=== PATIENT | male | born 1945 | race Caucasian/White ===

== ENCOUNTER 2024-02-05 14:34 | Inpatient (IN) | payer MEDICARE, SELFPAY ==
[2024-02-04] VITALS (7 sets, daily range): BP systolic 106–142; BP diastolic 44–88; BMI 24.0; BMI 23.1
--- NOTE | 2024-02-04 17:17 | ED.CVA ---
History of Present Illness
<Tino Barber PA-C - Last Filed: 02/04/24 19:20>
General
Chief Complaint: CVA/TIA Symptoms
Time Seen by Provider: 02/04/24 17:15
Onset of Stroke Symptoms
Onset of symptoms known: No
Time pt last seen normal is known: No
Travel History
Have you had any contact with someone who has COVID-19?: No
Do you have any symptoms of coronavirus? Fever > 100 degrees, chills, cough, shortness of breath, sore throat, loss of taste or smell, muscle aches, or headache?: No
History of Present Illness
History of Present Illness:
78-year-old male presents to the emergency department for evaluation of waxing and waning mental status changes over the past several days. According to his daughter he had an abrupt change in mental status at 12:30 PM today Where he became
agitated cannot form a sentence fully. Patient states he has felt 'off and confused' intermittently for the past several days. After the initial event the patient's daughter took him home where he took a nap, upon awakening he had a repeat of
similar symptoms thus prompting emergency department evaluation. Stroke alert called in triage, On my evaluation NIH is 0
Past History
<Tino Barber PA-C - Last Filed: 02/04/24 19:20>
Past History
ED Past Medical History: None
ED Past Surgical History: None
Review of Systems
<Tino Barber PA-C - Last Filed: 02/04/24 19:20>
Review of Systems
Allergies reviewed?: Yes
All Other Systems: ROS reviewed and negative except as documented in HPI and ROS
Phy Exam
<Tino Barber PA-C - Last Filed: 02/04/24 19:20>
Physical Exam
Physical Exam:
GEN: Well appearing, NAD, WDWN
HEENT: Oral mucosa moist, no scleral icterus, no nasal congestion
Cardiac: Regular rate
Lung: No respiratory distress, no tachypnea
MSK: No gross deformity or injuries
Skin: Good color, no pallor or jaundice, no rashes
Neuro: AO x3; CN II-XII grossly intact. BUE strength 5/5 in all guy, sensation intact and symmetric. BLE strength 5/5 in all guy, sensation intact and symmetric, Normal eyvyaf-ku-bfje and jooj-yl-kkth
Psych: Calm, cooperative
Course
<Tino Barber PA-C - Last Filed: 02/04/24 19:20>
Orders/Labs/Results
Orders:
Orders
02/04/24 17:07
EKG [Electrocardiogram (*1)] Urgent
Reason for Study: TIA/Stroke
02/04/24 17:13
Electrocardiogram (*1) Urgent
Reason for Study: Other
Other Reason for Exam: Possible Stroke
Bedside Glucose- Treatment ONCE
Cardiac Monitoring- Treatment ONCE
EKG- Treatment ONCE
IV Insert/Care/Rem.- Treatment PRN
Vital Signs As Directed
Frequency: Other
Weight As Directed
Frequency: Once
Comment: ZERO STRETCHER SCALE FOR ACCURATE WEIGHT
02/04/24 17:15
CT Head W/o Cont STROKE ALERT Urgent
Reason For Exam: visual changes
02/04/24 17:17
Complete Blood Count/With Diff Urgent
Comprehensive Metabolic Panel Urgent
PTT Urgent
Prothrombin Time Urgent
Troponin I Urgent
02/04/24 18:07
Lorazepam [Ativan] 1 mg IV NOW STA
02/04/24 18:10
Aspirin 325 mg PO NOW STA
Clopidogrel Bisulfate [Plavix] 75 mg PO NOW STA
02/04/24 18:32
Admit/Transfer Patient As Directed
Co-Sign Provider:
Level of Care: Observation services
Assign to:: Telemetry
Physician / Group: Jessica nicolasists
Diagnosis: TIA/CVA
Reason for Telemetry: CVA/TIA
Date to Stop Telemetry: 02/07/24
Time to Stop Telemetry: 11:00
Code Status As Directed
Resuscitation Status: Full Code
02/04/24 18:43
Ipratropium/Albuterol Sulfate [Duoneb] 3 ml INH R Q4HPRN PRN
02/07/24 11:00
DC Protocol for Telemetry ONCE
Abnormal Lab Results
02/04/24 02/04/24
17:17 17:19
WBC 12.2 H 10^3/uL
(4.8-10.8)
MCV 94.1 H fL
(80.0-94.0)
MCH 31.4 H pg
(27.0-31.0)
Absolute Neuts (auto) 8.0 H 10^3/uL
(1.4-6.5)
Absolute Monos (auto) 0.8 H 10^3/uL
(0.1-0.6)
APTT 35.3 H Sec
(23.4-35.0)
BUN 24 H mg/dl
(9-20)
Glucose 246 H mg/dl
(70-99)
Calcium 10.6 H mg/dl
(8.4-10.2)
POC Glucose 244 H mg/dl
(70-99)
02/04/24 17:17
02/04/24 17:17
Vital Signs
Initial and Last Documented VS:
Initial Vital Signs
Temp Pulse Resp BP Pulse Ox
98.2 F 96 18 142/65 97
02/04/24 17:00 02/04/24 17:00 02/04/24 17:00 02/04/24 17:00 02/04/24 17:00
Last Documented Vital Signs
Temp Pulse Resp BP Pulse Ox
98.2 F 98 20 122/44 97
02/04/24 17:00 02/04/24 18:30 02/04/24 17:16 02/04/24 18:20 02/04/24 18:20
<Christopher Voss MD - Last Filed: 02/04/24 18:54>
Orders/Labs/Results
Orders:
Orders
02/04/24 17:07
EKG [Electrocardiogram (*1)] Urgent
Reason for Study: TIA/Stroke
02/04/24 17:13
Electrocardiogram (*1) Urgent
Reason for Study: Other
Other Reason for Exam: Possible Stroke
Bedside Glucose- Treatment ONCE
Cardiac Monitoring- Treatment ONCE
EKG- Treatment ONCE
IV Insert/Care/Rem.- Treatment PRN
Vital Signs As Directed
Frequency: Other
Weight As Directed
Frequency: Once
Comment: ZERO STRETCHER SCALE FOR ACCURATE WEIGHT
02/04/24 17:15
CT Head W/o Cont STROKE ALERT Urgent
Reason For Exam: visual changes
02/04/24 17:17
Complete Blood Count/With Diff Urgent
Comprehensive Metabolic Panel Urgent
PTT Urgent
Prothrombin Time Urgent
Troponin I Urgent
02/04/24 18:07
Lorazepam [Ativan] 1 mg IV NOW STA
02/04/24 18:10
Aspirin 325 mg PO NOW STA
Clopidogrel Bisulfate [Plavix] 75 mg PO NOW STA
02/04/24 18:32
Admit/Transfer Patient As Directed
Co-Sign Provider:
Level of Care: Observation services
Assign to:: Telemetry
Physician / Group: Jessica nicolasists
Diagnosis: TIA/CVA
Reason for Telemetry: CVA/TIA
Date to Stop Telemetry: 02/07/24
Time to Stop Telemetry: 11:00
Code Status As Directed
Resuscitation Status: Full Code
02/04/24 18:43
Ipratropium/Albuterol Sulfate [Duoneb] 3 ml INH R Q4HPRN PRN
02/07/24 11:00
DC Protocol for Telemetry ONCE
Abnormal Lab Results
02/04/24 02/04/24
17:17 17:19
WBC 12.2 H 10^3/uL
(4.8-10.8)
MCV 94.1 H fL
(80.0-94.0)
MCH 31.4 H pg
(27.0-31.0)
Absolute Neuts (auto) 8.0 H 10^3/uL
(1.4-6.5)
Absolute Monos (auto) 0.8 H 10^3/uL
(0.1-0.6)
APTT 35.3 H Sec
(23.4-35.0)
BUN 24 H mg/dl
(9-20)
Glucose 246 H mg/dl
(70-99)
Calcium 10.6 H mg/dl
(8.4-10.2)
POC Glucose 244 H mg/dl
(70-99)
02/04/24 17:17
02/04/24 17:17
Vital Signs
Initial and Last Documented VS:
Initial Vital Signs
Temp Pulse Resp BP Pulse Ox
98.2 F 96 18 142/65 97
02/04/24 17:00 02/04/24 17:00 02/04/24 17:00 02/04/24 17:00 02/04/24 17:00
Last Documented Vital Signs
Temp Pulse Resp BP Pulse Ox
98.2 F 98 20 122/44 97
02/04/24 17:00 02/04/24 18:30 02/04/24 17:16 02/04/24 18:20 02/04/24 18:20
<Tino Barber PA-C - Last Filed: 02/04/24 19:20>
MDM/Problems Addressed
MDM/Problems Addressed:
I suspect the patient's symptoms are predominantly psychosomatic given the rapidity with which he develops his 'episodes' and the need to ambulate about the room. Nevertheless given his advanced age and vascular risk factors of insulin-dependent
diabetes would feel it is appropriate to admit this patient for further TIA workup
<Tino Barber PA-C - Last Filed: 02/04/24 19:20>
*Critical Care Note
Total Time (30-74mins, 75-104mins- exclusive of procedures): Not Applicable
<Tino Barber PA-C - Last Filed: 02/04/24 19:20>
Update Note
Update Note:
1803: Patient with a recurrent event, states he feels anxious and needs to get himself up and out of bed, repeat neuro exam is unremarkable
ED Attending Note
<Tino Barber PA-C - Last Filed: 02/04/24 19:20>
-
Portions of this chart may have been created with voice recognition software.� Occasional wrong word or��sound alike� substitutions may have occurred due to the inherent limitations of voice recognition software.
<Christopher Voss MD - Last Filed: 02/04/24 18:54>
ED Attending Note
Patient seen and examined by attending physician: Yes
ED Attending Note:
I have seen and evaluated the patient with a [id number]-ca-[id number] encounter. I have spoken to the advance practicer provider and involved in the medical history, the physical exam, medical decision making.
Evaluation and management service: agree unless noted differently below.
Results interpretation: agree unless noted differently below.
Focused HPI: 78-year-old male with history of hypertension, hyperlipidemia, diabetes, COPD presents to the emergency room with his daughter for evaluation of intermittent agitation and vision disturbance/lightheadedness. According to patient's
daughter he has been under tremendous stress recently 'his life is imploded.' Apparently no longer has at home and is living with his daughters. He is from his . She says that over the past few days he has had episodes of
agitation/confusion. Today around 12:30 PM while they were driving the car he became acutely restless and said that he was feeling dizzy/lightheaded. Complained of some visual disturbance. His daughter thought that it could be a panic attack,
symptoms lasted for about 30 minutes and seem to be improved when they got home. Later on in the afternoon symptoms returned and she brought him to the emergency room to be checked out. He denies any vision loss, focal weakness or numbness, speech
disturbance.
Physical exam: Awake alert, oriented x 3. Vital signs within normal limits. Speech is fluent no dysarthria or aphasia. No cranial nerve deficits. Motor and sensory function intact in the extremities with no drift.
Medical Decision Makin-year-old male presents for evaluation of episodic confusion, blurry vision/dizziness. Was called a stroke alert in triage. NIH stroke scale 0. Case discussed with neurology. Will check CT head, basic labs, EKG. He
does have risk factors for stroke/TIA�if CT negative will admit for continued workup. No TNK indicated at present.
Discharge Plan
Departure
Patient Disposition: Admit
Date of Disposition: 02/04/24
Time of Disposition: 18:16
Admit to: Telemetry
Presentation/result/management discussed w/ accepting MD/DO: Hospitalist
Discharge Problem:
Transient ischemic attack
Interventions
Interventions:
*Risk Screen - Suicide Last Done: 02/04/24 17:42
*Neglect/Abuse Screening Last Done: 02/04/24 17:42
ED- Pulmonary Assessment Last Done: 02/04/24 17:47
ED- Neurological Assessment Last Done: 02/04/24 18:15
ED- Cardiac Assessment Last Done: 02/04/24 17:47
ED Swallowing Screen Last Done: 02/04/24 18:15
[2024-02-04 17:20] LABS: Glucose - Point of Care 244 mg/dl (70-99)
[2024-02-04 17:23] LABS: % Basophils 1.5 % (0-2); % Eosinophils 1.2 % (0-6); % Immature Granulocytes 0.2 % (0-0.5); % Lymphocytes 24.8 % (20.5-51.1); % Monocytes 6.7 % (1.7-9.3); % Neutrophils 65.6 % (42.2-75.2); Absolute Basophils 0.2 10^3/uL (0-0.2); Absolute Eosinophils 0.2 10^3/uL (0-0.7); Absolute Monocytes 0.8 10^3/uL (0.1-0.6); Hematocrit 46.1 % (39.0-52.0); Hemoglobin 15.4 g/dL (13.0-18.0); Mean Corp Hgb Conc. 33.4 g/dL (33.0-37.0); Mean Corpuscular Hgb 31.4 pg (27.0-31.0); Mean Corpuscular Volume 94.1 fL (80.0-94.0); Mean Platelet Volume 9.4 fL (7.4-10.4); Nucleated Red Blood Cells % 0 % (-); Platelet Count 355 10^3/uL (130-400); Red Cell Dist. Width 12.5 % (11.5-14.5); White Blood Cell Count 12.2 10^3/uL (4.8-10.8)
[2024-02-04 17:33] LABS: PT 12.1 Sec (11.4-14.6)
[2024-02-04 17:34] LABS: APTT 35.3 Sec (23.4-35.0)
[2024-02-04 17:45] LABS: ALT (SGPT) 23 U/L (0-50); AST (SGOT) 25 U/L (17-59); Albumin 4.5 g/dl (3.5-5.0); Alkaline Phosphatase 69 U/L (38-126); Blood Urea Nitrogen 24 mg/dl (9-20); Calcium 10.6 mg/dl (8.4-10.2); Carbon Dioxide 24 mmol/L (22-30); Chloride 99 mmol/L (98-107); Estimated Creatinine Clearance 64 ml/min; Glucose 246 mg/dl (70-99); Potassium 4.3 mmol/L (3.5-5.1); Sodium 135 mmol/L (135-145); Total Bilirubin 0.6 mg/dl (0.2-1.3); Total Protein 7.5 g/dl (6.3-8.2); eGFR > 60.00
[2024-02-04 17:48] LABS: Troponin I < 0.012 ng/ml
[2024-02-04] MEDS: ATIVAN 1 MG IV (18:17)
[2024-02-04] MEDS: ASPIRIN 325 MG PO (18:17)
[2024-02-04] MEDS: PLAVIX 75 MG PO (18:17)
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
--- NOTE | 2024-02-04 18:42 | PHANOTE ---
Med Rec Note:
Pt very confused on his medications. States he takes Januvia (unsure of dose), and another unknown medications. Called Kerrie Fraser MD, pharmacy staff pt has filled Pravastatin 20mg Daily, but they don't have a prescription for Januvia.
Home med list left unconfirmed.
[2024-02-04 21:17] LABS: Glucose - Point of Care 175 mg/dl (70-99)
[2024-02-05] VITALS (8 sets, daily range): BP systolic 112–164; BP diastolic 75–98; PULSE 76–88; O2SAT 96–99
[2024-02-05 05:37] LABS: Hematocrit 43.1 % (39.0-52.0); Hemoglobin 14.4 g/dL (13.0-18.0); Mean Corp Hgb Conc. 33.4 g/dL (33.0-37.0); Mean Corpuscular Hgb 31.2 pg (27.0-31.0); Mean Corpuscular Volume 93.5 fL (80.0-94.0); Mean Platelet Volume 9.7 fL (7.4-10.4); Platelet Count 340 10^3/uL (130-400); Red Blood Cell Count 4.61 10^6/uL (4.70-6.10); Red Cell Dist. Width 12.7 % (11.5-14.5); White Blood Cell Count 8.6 10^3/uL (4.8-10.8)
[2024-02-05 06:04] LABS: Blood Urea Nitrogen 23 mg/dl (9-20); Carbon Dioxide 26 mmol/L (22-30); Chloride 103 mmol/L (98-107); Estimated Creatinine Clearance 64 ml/min; Glucose 159 mg/dl (70-99); HDL Cholesterol 41 mg/dl; LDL Cholesterol, Calculated 135 mg/dl; Potassium 4.4 mmol/L (3.5-5.1); Sodium 137 mmol/L (135-145); Total Cholesterol 224 mg/dl (50-199); Triglyceride 244 mg/dl (10-149); Very Low Density Lipoprotein 48 mg/dl (0-30); eGFR > 60.00
[2024-02-05 07:32] LABS: Glucose - Point of Care 154 mg/dl (70-99)
[2024-02-05] MEDS: LOW STRENGTH ASPIRIN 81 MG PO (07:40)
[2024-02-05] MEDS: PLAVIX 75 MG PO (07:40)
[2024-02-05] MEDS: NOVOLOG FLEXPEN-LOW RESISTANCE 1 UNITS SC ×3 (07:40→17:23)
--- NOTE | 2024-02-05 07:55 | CON.NEURO4 ---
Consultation - Neurology 4
-
CONSULTING PHYSICIAN: Jerel Sparks
REFERRING PHYSICIAN: Hospitalist
DICTATED BY: Jerel Sparks
DATE/TIME OF REQUEST: 02/05/24
DATE/TIME OF CONSULTATION: 02/05/24
Reason for Consultation: Vision changes
History of Present Illness:
Patient is a 78-year-old man with past medical history of previous smoking history, hypertension, diabetes, anxiety, COPD presented to hospital because of right eye vision changes happening over the past few days.
Patient reports that this is very painless and seems to last around 15 to 20 minutes usually although sometimes is lasted longer. He estimates this has been going on for couple of days. He has no history of significant eye issues including any
cataracts or glaucoma or recent trauma to the head or neck or eyes. Currently vision feels a little bit strained in the right eye but otherwise does not seem to be in any kind of attack of vision loss at this time. Quality of the vision loss is
described as a graying or clouding and he does feel confident that this is isolated to the right eye only.
He was at home yesterday accompanied by his daughter who began concerned that he seemed to have a change in mental status yesterday with some confusion that seemed very abnormal.
No instances of left arm or leg paresthesia or weakness. No unusual recent headaches.
Past Medical History: Hypertension, hyperlipidemia, COPD, insulin dependent diabetes mellitus, anxiety
Surgical History: Tonsillectomy
Family History: Non-contributory
Social History: Former smoking and alcohol abuse more than 20 pack years quitting in 2004
Allergies: No known drug allergies
Review of Symptoms:
Patient denies any fever, headache, chest pain, shortness of breath, GI or symptoms.
Physical Exam:
Elderly man appears well no distress head and neck appear atraumatic normocephalic eyes are clear with no outward observable abnormality of the eyes, oropharynx clear, neck supple no masses, heart rate regular breathing unlabored abdomen soft
nontender no lower extremity edema.
Neurologic Examination:
The patient is awake, alert and oriented x 3. He is able to follow commands and answer questions appropriately. There is no aphasia or dysarthria. On cranial nerve assessment, pupils are 3 mm bilateral, round and reactive to light and
accommodation. Visual guy are full. Vision 20/30 in OD and OS to near card testing. No APD seen. Extraocular movements are intact. Facial sensations are intact and bilaterally symmetrical, there is no facial asymmetry. Hearing is intact
bilaterally to normal conversation volume. Tongue palate and uvula are midline. Sternocleidomastoid strengths are full bilaterally. Motor strengths are 5/5 bilateral upper and lower extremities on medical research [place] scale. There is no drift
or involuntary movement noted. Deep tendon reflexes are 2+ bilateral upper and lower extremities and Babinski is absent bilaterally. Sensations of pain, touch, temperature and vibration are intact and bilaterally symmetrical. There was no extinction
noted on double simultaneous stimulation. Coordination is intact by finger to nose bilaterally.
Neuro Imaging: CT head non contrast no acute abnormalities, no acute infarcts, chronic infarcts, no hemorrhage, no masses, age appropriate generalized atrophy
Impressions
1. Concern for recent episodes of right eye vision loss representing amaurosis fugax as well as the changes in mental status observed by his daughter representing right hemispheric TIA's, potentially carotid source. MRI brain shows no acute
ischemic infarction. MRA studies show some moderate common carotid stenosis along with right middle cerebral artery intracranial stenosis.
-The intracranial right middle cerebral artery stenosis seen on MRA head/neck should not be producing any monocular right eye vision loss given the MCA artery is distal to the retinal and ophthalmic arteries
2. Intracranial atherosclerosis seen on MRA studies of head
3. Hypertension
4. Diabetes
5. COPD
Recommendations:
1. Continue aspirin and clopidogrel
2. Neurologic checks NIH stroke scales
3. Agree with increase atorvastatin 80 mg daily
4. Vascular surgery consult
5. Anticipate patient will need either CTA of the head and neck versus carotid ultrasound as further investigation into right carotid artery
6. Check TTE and continue cardiac telemetry
7. Stroke educational materials
8. Goal normotension
Discussed patient care with: Patient
--- NOTE | 2024-02-05 08:41 | CARDSERVLU ---
Echocardiogram with [facility] completed after protocol screening completed. Allergies verified.
Patent IV site: __Right arm median antecubital 20 G PC___
IV site flushed with 0.9% NaCl pre and post administration.
Diluted bolus method utilized to enhance visualization of ventricular holliday.
Total volume given: __5__ mL
Patient tolerated all procedures well without complications.
[2024-02-05 08:49] LABS: Glycohemoglobin (HgbA1c) 8.3 % (4.0-5.6)
--- NOTE | 2024-02-05 09:32 | PTOTSP ---
Patient independent with ambulation and stair climbing, no skilled PT needs. Will sign off.
--- NOTE | 2024-02-05 10:55 | PTOTSP ---
Speech Language Pathology
Pt seen for cognitive-linguistic evaluation via the [place] Cognitive Assessment (MOCA), version 8.1. Pt with a score of 18/30 where normal range is 26-30. Pt with mild-mod cognitive deficits.
Pt stated he completed a similar test in October of this year with no difficulties. 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 Plan for MRI.
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
[2024-02-05 12:39] LABS: Glucose - Point of Care 153 mg/dl (70-99)
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
--- NOTE | 2024-02-05 16:02 | W.PN.UPDATE ---
Addendum entered and electronically signed by Valente Méndez MD 02/05/24 16:10:
Note, 2 additional issues:
1. PAD. Nonpalpable pedal pulses. Easily palpable popliteal pulses bilaterally. May be consistent with infrapopliteal artery disease. At some point would obtain baseline noninvasive imaging studies. We can get these as an outpatient as well.
He is asymptomatic currently. Denies any claudication. No rest pain/tissue loss.
2. Screening abdominal aortic aneurysm. Based on his age and history of tobacco use, would recommend one-time screening ultrasound to rule out abdominal aortic aneurysm. This can also be obtained as an outpatient.
Original Note:
Update Note
Progress Note Update
Seen and examined with MANAGER IMAGE's. Full consultation to follow. Briefly 78-year-old male who had episode of right eye amaurosis type symptoms yesterday. Notes haziness in his vision but not complete loss. He notes that it still not back to normal
today. According to him he had an episode earlier in the day as well. He said the later episode though he had dizziness associated and his daughter was worried and that prompted emergency room evaluation. Per patient he has had this episodes a
few times in the past. Denies any episodes of unilateral numbness or weakness or speech dysarthria. No prior history of strokes.
Cardiovascular risk factors include diabetes, hypertension, hyperlipidemia, tobacco use (quit 20 years ago, prior smoked between 1 to 3 packs a day).
On exam/ He is awake and alert. Head is normocephalic and atraumatic. Eyes are anicteric. Neck is soft without jugular venous distention. Breathing is unlabored. Right upper extremity 2+ ulnar pulse, radial not palpable. Left upper extremity
2+ radial pulse palpable. 2+ left carotid pulse, difficulty palpating right carotid pulse. Abdomen is soft, nondistended, nontender. Lower extremity with 2+ femoral and popliteal pulses palpable bilaterally. Nonpalpable distally otherwise. Feet
are both warm and pink and well-perfused, no rubor, no ulcerations.
MRA images reviewed. I difficulty appreciating the '60% stenosis at the origin of the right common carotid artery' noted by the radiologist.
Plan/ Possible amaurosis right eye. No significant bifurcation stenosis but he does have common carotid artery stenosis possibly. Need to better assess the origin of the common carotid artery as well as assess the nature of the plaque. If it
concerning plaque and felt to have caused the symptoms, could consider revascularization. Would favor CT angiogram imaging first. Will order CT scan and then discussed with patient.
--- NOTE | 2024-02-05 16:23 | CON.VAS ---
Consultation
Consultation Request
Date/Time Consultation Performed: 02/05/2024 1600
Requesting Provider: Hospitalist
Performing Provider: Nilam Huang, JORGE-C for Valente Méndez MD
Reason for Consultation: Symptomatic carotid stenosis
Medical History
-
Chief Complaint: Right eye vision changes
History of Present Illness:
This is a 78-year-old man with significant past medical history of COPD, hypertension, hyperlipidemia, diabetes, and anxiety who presented to [facility] on 02/04/2024 with reports of several episodes of right eye amaurosis type symptoms occurring
yesterday. He notes his vision is not at baseline at his right eye. He does endorse episodes of acute right eye vision changes occurring in the past as well. However, he cannot quantify amount of occurrences prior to yesterday. He does note that
episodes of vision changes yesterday were accompanied with confusion, prompting his daughter to insist that he be seen at the hospital. Patient reports episodes seem to last around 15 to 20 minutes. He has no history of significant eye issues
including any cataracts or glaucoma or recent trauma to the head or neck or eyes. Currently vision feels a little bit strained in the right eye but does not endorse complete vision loss of any guy. Quality of the vision loss is described as a
graying or clouding and he does feel confident that this is isolated to the right eye only.
Past Medical History
Past Medical History: COPD, HTN, IDDM, Psychiatric (Anxiety) and Other (Hyperlipidemia)
Past Surgical History: Bowel Resection and Tonsilectomy
Social History
Tobacco: Former Smoker
Alcohol: Former
Personal: Single
Living: With Family
Allergies / Home Medications
Allergy/AdvReac Type Severity Reaction Status Date / Time
No Known Allergies Allergy Unverified 02/04/24 18:49
�Medication �Instructions �Recorded �Confirmed �Type
Januvia 1 tab PO HS 02/04/24 History
insulin glargine 100 unit/mL (3 20 unit SC DAILY Diabetes 02/04/24 02/04/24 History
mL) subcutaneous pen (Lantus
Solostar U-100 Insulin)
eaucevslfsjw-ztswtxdv-zxhsbs tablet 1 tab PO DAILY Supplement 02/04/24 02/04/24 History
pravastatin 20 mg tablet 20 mg PO DAILY 02/04/24 History
Review of Systems
-
History Source: Patient
Constitutional: Reports No Symptoms
EENT: Reports Other (Blurred/skewed vision in right eye)
Respiratory: Reports No Symptoms
Cardiac: Reports No Symptoms
Vascular: Denies Leg Pain / Claudication
Abdomen/GI: Reports No Symptoms
: Reports No Symptoms
Musculoskeletal: Reports No Symptoms
Skin: Reports No Symptoms
Neurological: Reports Dizzy (when acute episode happened yesterday, denies currently )
Physical Exam
Vital Signs
Temp Pulse Resp BP Pulse Ox
97.7 F 98 18 141/82 97
02/05/24 12:36 02/05/24 12:36 02/05/24 12:36 02/05/24 12:36 02/05/24 12:36
Lab Results
02/05/24 05:26
02/05/24 05:26
Troponin I < 0.012 ng/ml 02/04/24 17:17
Physical Exam
General: No Apparent Distress and Comfortable
HEENT: Normocephalic, Anicteric and Atraumatic
Respiratory: Non Labored Respirations
Cardiac: Negative JVD
GI: Soft, Non Tender and Non Distended
Musculoskeletal: No Edema and Other ( Right upper extremity 2+ ulnar pulse, radial not palpable. Left upper extremity 2+ radial pulse palpable. 2+ left carotid pulse, difficulty palpating right carotid pulse.)
Skin: Warm and Other (Nonpalpable distally otherwise. Feet are both warm and pink and well-perfused, no rubor, no ulcerations.)
Neuro: AO x 3
Pulses: Bilateral Femoral: +2
Assessment / Plan
-
Assessment: 78-year-old male with possible amaurosis right eye concerning for symptomatic carotid stenosis
Plan:
Need to better assess the origin of the common carotid artery as well as assess the nature of the plaque. If it concerning plaque and felt to have caused the symptoms, could consider revascularization. Would favor CT angiogram, will devise
vascular surgical recommendation once results of CT angio are obtained.
PAD. Nonpalpable pedal pulses. Easily palpable popliteal pulses bilaterally. May be consistent with infrapopliteal artery disease. At some point would obtain baseline noninvasive imaging studies. We can get these as an outpatient as well. He
is asymptomatic currently. Denies any claudication. No rest pain/tissue loss.
Screening abdominal aortic aneurysm. Based on his age and history of tobacco use, would recommend one-time screening ultrasound to rule out abdominal aortic aneurysm. This can also be obtained as an outpatient.
I performed this shared service with the attending. I evaluated the patient [id number] and have entered clinical documentation as shown in the encounter note. I performed the following component(s): history and physical exam. Note that medical
decision making is not final until attested by vascular attending.
[2024-02-05 17:20] LABS: Glucose - Point of Care 189 mg/dl (70-99)
[2024-02-05] MEDS: TOPROL XL 25 MG PO (17:23)
[2024-02-05] MEDS: LIPITOR 80 MG PO (17:24)
--- NOTE | 2024-02-05 17:59 | W.PN.UPDATE ---
Update Note
Progress Note Update
CT angiogram head and neck reviewed. I discussed findings with patient and his son. I do not see any significant stenosis at the origin of the common carotid artery (right common carotid artery) as was reported on MRA. Looks widely patent. The
only finding is an artifactual finding on image 542 of 737 and series 602 the common carotid artery appears to be less opacified but it appears secondary to the bright contrast in the adjacent large internal jugular vein at that phase. There is
some moderate plaque at the carotid bifurcation but no significant stenosis. Therefore nothing to offer from a surgical perspective. I did examine him again he does have a 2+ palpable right carotid pulse that I was able to more easily palpate now.
This all goes along with patency of the right common carotid as well. Will defer to neurology regarding management of his visual symptoms and other symptoms.
[2024-02-05 19:08] LABS: Hepatitis C Antibody Negative (Negative)
[2024-02-05] MEDS: MELATONIN 5 MG PO (20:43)
[2024-02-05] MEDS: ENTRESTO 24 MG/26 MG 1 TAB PO (20:43)
[2024-02-05 21:35] LABS: Glucose - Point of Care 202 mg/dl (70-99)
[2024-02-06 03:25] VITALS: BP 136/82
[2024-02-06 05:40] LABS: % Basophils 2.3 % (0-2); % Eosinophils 2.7 % (0-6); % Immature Granulocytes 0.1 % (0-0.5); % Lymphocytes 33.8 % (20.5-51.1); % Monocytes 8.2 % (1.7-9.3); % Neutrophils 52.9 % (42.2-75.2); Absolute Basophils 0.2 10^3/uL (0-0.2); Absolute Eosinophils 0.3 10^3/uL (0-0.7); Absolute Lymphocytes 3.3 10^3/uL (1.2-3.4); Absolute Monocytes 0.8 10^3/uL (0.1-0.6); Absolute Neutrophils 5.2 10^3/uL (1.4-6.5); Hematocrit 45.8 % (39.0-52.0); Hemoglobin 15.3 g/dL (13.0-18.0); Mean Corp Hgb Conc. 33.4 g/dL (33.0-37.0); Mean Corpuscular Volume 92.7 fL (80.0-94.0); Mean Platelet Volume 9.9 fL (7.4-10.4); Nucleated Red Blood Cells % 0 % (-); Platelet Count 373 10^3/uL (130-400); Red Blood Cell Count 4.94 10^6/uL (4.70-6.10); Red Cell Dist. Width 12.5 % (11.5-14.5); White Blood Cell Count 9.8 10^3/uL (4.8-10.8)
[2024-02-06 06:02] LABS: Blood Urea Nitrogen 26 mg/dl (9-20); Calcium 10.3 mg/dl (8.4-10.2); Carbon Dioxide 21 mmol/L (22-30); Chloride 102 mmol/L (98-107); Estimated Creatinine Clearance 72 ml/min; Glucose 212 mg/dl (70-99); Potassium 4.8 mmol/L (3.5-5.1); Sodium 135 mmol/L (135-145); eGFR > 60.00
[2024-02-06 06:18] LABS: Vitamin D, 25-OH*** 70.7 ng/mL (30-80)
[2024-02-06 07:07] LABS: Folate 18.8 ng/ml (2.76-20)
[2024-02-06 07:37] VITALS: BP 153/83
[2024-02-06 07:45] LABS: Glucose - Point of Care 215 mg/dl (70-99)
[2024-02-06 08:06] LABS: Vitamin B12 850 pg/ml (239-931)
--- NOTE | 2024-02-06 08:39 | W.PN.CD ---
Today's Communication / Plan
-
GDMT started
cm for pricing
Ok for discharge from cardiac perspective will arrange follow up
please call back with questions
Impression / Plan
-
TIA's:
-neuro following
-ASA, plavix, statin started
-vascular consulted Neck MRA was abnormal: No MRA abnormality of the internal carotid arteries. 2 cm long segment of 60% stenosis at the origin of the R common carotid artery. 50% stenosis at the origin of L subclavian artery. 60% stenosis at the
origin of the brachiocephalic trunk.
Cardiomyopathy:
-echo as below
-type unknown, no symptoms, OP evaluation planned
-add GDMT as tolerated, Entresto, Dapaglifozin, metoprolol started, MRA as op
-c/s CM for pricing
DM2:
-on insulin
-monitor with medicine adjustments
HTN:
-monitor with medicine adjustments
HLD:
-LDL 135
-now on high intensity statin
Physical Exam
Vital Signs/Labs
Vital Signs
Temp Pulse Resp BP Pulse Ox
97.7 F 91 18 153/83 98
02/06/24 07:37 02/06/24 07:37 02/06/24 07:37 02/06/24 07:37 02/06/24 07:37
02/05/24 02/06/24 02/07/24
06:59 06:59 06:59
Actual Weight 66.791 kg
02/06/24 05:09
02/06/24 05:09
PT 12.1 Sec (11.4-14.6) 02/04/24 17:17
INR 0.90 02/04/24 17:17
APTT 35.3 Sec (23.4-35.0) H 02/04/24 17:17
Triglycerides 244 mg/dl (10-149) H 02/05/24 05:26
LDL Cholesterol, Calc 135 mg/dl 02/05/24 05:26
VLDL Cholesterol, Calc 48 mg/dl (0-30) H 02/05/24 05:26
HDL Cholesterol 41 mg/dl 02/05/24 05:26
LAB Results
02/04/24
17:17
Troponin I < 0.012
Physical Exam
Constitutional: No acute distress
Cardiovascular: Rhythm & rate is regular, Pedal edema is absent, JVD pressure is normal, Systolic murmur absent and Diastolic murmur absent
Respiratory: Respiratory effort normal, Lungs clear to auscul., Wheeze Absent and Crackles Absent
GI: Soft
Neuro/Psych: AO x 3
Data Reviewed
-
Date of Service: February 06, 2024
Medical Decision Making: Review of Case with other Provider (Dr Stein ok for discharge from cardiac perspective)
[2024-02-06] MEDS: LOW STRENGTH ASPIRIN 81 MG PO (09:26)
[2024-02-06] MEDS: PLAVIX 75 MG PO (09:26)
[2024-02-06] MEDS: ENTRESTO 24 MG/26 MG 1 TAB PO (09:26)
[2024-02-06] MEDS: FARXIGA 10 MG PO (09:26)
[2024-02-06] MEDS: TOPROL XL 25 MG PO (09:26)
[2024-02-06] MEDS: NOVOLOG FLEXPEN-LOW RESISTANCE 2 UNITS SC (09:28)
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
--- NOTE | 2024-02-06 11:13 | W.DCSUMMARY ---
Discharge Summary
Discharge Data
Date of Admission: 02/05/24
Date of Discharge: 02/06/24
-
Pending Results: No
Hospital Course
78 yo M with past medical history of tobacco abuse, hypertension, hyperlipidemia, diabetes mellitus, pulmonary nodules presenting to the hospital with complaint of right eye vision problems. Patient with CT of the head which was negative for acute
pathology. Patient with MRI of the brain which is negative for acute stroke. MRA of the head and neck showed severe atherosclerosis with concern for carotid artery stenosis. Neurology on board and recommended vascular surgery evaluation.
Vascular evaluated the patient. Patient with CT angio head and neck. Per vascular surgery patient symptomatology not consistent with right carotid artery stenosis. Patient with severely elevated LDL was started on high-dose statin as patient was
noncompliant as outpatient. Patient was also started on aspirin and Plavix with goal to continue dual antiplatelet agent for 1 month and then continue aspirin only. Patient underwent echocardiogram as part of TIA workup and was found to have a
cardiomyopathy with a EF of 30%. Patient denies any prior history of heart failure. Patient was started on goal-directed medical therapy per cardiology on Toprol Farxiga and Entresto. Patient blood pressure was tolerating it. Patient was eval by
PT and OT. Patient was ambulating without any difficulty. Patient with improvement in vision. Recommended outpatient ophthalmology evaluation. Patient also with pulmonary nodules and recommend outpatient pulmonology follow-up.
Discharge Plan
-
Patient Disposition: Home with Home Care
Discharge Diagnosis/Procedures: Right eye intermittent vision loss likely secondary TIA
HFrEF unknown chronicity
Hyperlipidemia
Primary hypertension
Condition: Fair
Diet: Low Cholesterol and Diabetic, Carb Controlled
Activity: With assistance
Driving Restrictions: Not until seen by your Dr
Others Tests: Your outpatient vascular surveillance ultrasounds for peripheral arterial disease and abdominal aortic aneurysm are scheduled on 03/01/2024 here at [facility] at 9 am
Activity Restrictions/Additional Instructions:
Continue aspirin and Plavix for additional 29 days and then continue aspirin only and stop Plavix.
Recommend CT chest in 2-3 months for finding of Lung nodules
Referrals:
Cora Youssef DO [Active] - in one to two months (Call to make appointment to follow-up for pulmonary nodules.)
Lilly Gutiérrez CRNP [Specified Professional Personl] - 02/13/24 11:20 am
NONE,* [Family Provider] - in less than 1 week
Valente Méndez MD [Active] - 03/05/24 2:00 pm
Prescriptions:
New
atorvastatin 80 mg Tablet
80 mg PO QPM 30 Days Qty: 30 0RF
clopidogrel 75 mg Tablet
75 mg PO DAILY 29 Days Qty: 29 0RF
aspirin [Children's Aspirin] 81 mg Tablet,Chewable
81 mg PO DAILY 30 Days Qty: 30 0RF
metoprolol succinate 25 mg Tablet Extended Release 24 Hr
25 mg PO DAILY 30 Days Qty: 30 0RF
dapagliflozin propanediol 10 mg Tablet
10 mg PO DAILY 30 Days Qty: 30 0RF
Entresto 24-26 mg Tablet
1 tab PO BID 30 Days Qty: 60 0RF
Continued
trbeugjdsftr-uqiehtpa-rfcquy Tablet
1 tab PO DAILY
insulin glargine [Lantus Solostar U-100 Insulin] 100 unit/mL (3 mL) Insulin Pen
20 unit SC DAILY
Januvia
1 tab PO HS
Discontinued
pravastatin 20 mg Tablet
20 mg PO DAILY
Discharge Orders:
Discharge Patient (As Directed); Ordered 02/06/24
Ordered By: Abhishek Stein
Discharge Date and Time
Discharge Date/Time: 02/06/24 12:37
Print Language: CENTRAL AFRICAN
[2024-02-06 11:34] VITALS: BP 131/85
[2024-02-06 11:42] LABS: Glucose - Point of Care 186 mg/dl (70-99)
--- NOTE | 2024-02-06 12:24 | W.PN.NEURO.1 ---
Today's Communication / Plan
-
-Would place on aspirin and clopidogrel for total of 4 weeks and then return to aspirin monotherapy afterward
-Continue atorvastatin 80 mg daily
-Discussed my recommendation with the patient and his daughter that he needs to see ophthalmology as an outpatient for the right eye vision loss episodes
-Counseled on life stressors
-No further workup or monitoring felt necessary as an inpatient from my perspective
-Would have follow up with neurology anticipate can be one time
Neuro Assessment/Plan
Assessment
78-year-old male with a past ministry of former smoking, hyperlipidemia presented to hospital with episode of confusion associated with some breathing difficulties at home he also relates that he has had vision difficulties predominantly in the
right going on for around the past couple of weeks, duration of vision loss seems to be around 15 to 20 minutes sometimes up to an hour and these episodes are painless.
Initial was concern for potential amaurosis fugax in the right eye although on further history they have been going on for some time now over several weeks and the duration seems a bit too long to be amaurosis fugax.
Some potential for TIA here although the patient's significant amount of anxiety from recent life stresses may also be playing a role in his presenting symptoms.
Certainly patient is at risk for TIA and stroke given findings of extensive atherosclerosis intracranial on the CTA of the head and neck as well as an MRA of the head. No carotid stenosis seen on the CTA of the neck so he would not be worrisome for
asymptomatic carotid stenosis.
Subjective/Objective
Subjective Data
Date of Service: February 06, 2024
No acute events overnight, patient with no recurrent visual issues, no headache, speech issues or weakness, discussed concerns for atherosclerosis in head and neck blood vessels, seeing ophthalmology, protection from TIA/stroke
Objective Data
Vital Signs
Temp Pulse Resp BP Pulse Ox
98.2 F 95 16 131/85 96
02/06/24 11:34 02/06/24 11:34 02/06/24 11:34 02/06/24 11:34 02/06/24 11:34
Lab Results
02/06/24 05:09
02/06/24 05:09
PT 12.1 Sec (11.4-14.6) 02/04/24 17:17
INR 0.90 02/04/24 17:17
APTT 35.3 Sec (23.4-35.0) H 02/04/24 17:17
Sodium 135 mmol/L (135-145) 02/06/24 05:09
Potassium 4.8 mmol/L (3.5-5.1) 02/06/24 05:09
BUN 26 mg/dl (9-20) H 02/06/24 05:09
Glucose 212 mg/dl (70-99) H 02/06/24 05:09
Calcium 10.3 mg/dl (8.4-10.2) H 02/06/24 05:09
LDL Cholesterol, Calc 135 mg/dl 02/05/24 05:26
Vitamin B12 850 pg/ml (239-931) 02/06/24 05:09
Patient Allergies
No Known Allergies Allergy (Unverified 02/04/24 18:49)
LDL Level: >70, statin ordered
Review of Systems
-
History Source: Patient
All other systems: Reviewed and negative
EENT: No Symptoms Reported
Respiratory: No Symptoms
Cardiac: No Symptoms
Abdomen/GI: No Symptoms
Genitourinary: No Symptoms
Musculoskeletal: No Symptoms
Skin: No Symptoms
Neuro: No Symptoms
Endocrine: No Symptoms
Hematologic / Lymphatic: No Symptoms
Allergy / Immunology: No Symptoms
Physical Exam
-
General: Comfortable
Eyes: No Ptosis
HEENT: Normocephalic
Neck: No Bruits Bilaterally
Respiratory: Clear to Auscultation
Cardiac: Regular Rhythm
GI: Normal Bowel Sounds
Skin: Unremarkable
Extremities: No Clubbing
Psych: Unremarkable
Extended Neurological Exam
Mood & Affect: Mood Unremarkable and Affect Unremarkable
Attention Span & Concentration: Awake, Alert and Interactive
Memory: Unremarkable
Tremor: Hand Tremor Absent
Involuntary Movement: None
Speech: Quality Unremarkable and Quantity Unremarkable; Negative Expressive Aphasia or Receptive Aphasia
Cranial Nerve II: Left Eye: Pupillary Reactivity Unremarkable, Pupillary Size Unremarkable and Visual Mckee Grossly Intact
Cranial Nerve II: Right Eye: Pupillary Reactivity Unremarkable and Pupillary Size Unremarkable
Cranial Nerves III, IV, : Extraocular Movement: Extraocular Movement Full in all Directions
Muscle Strength, Overall: Full Throughout
Muscle Bulk & Tone: Bulk Unremarkable
Pronator Drift: No Drift in Upper Extremities
Deep Tendon Reflexes: Trace Throughout
Touch Sensation: Unremarkable
Data Reviewed
-
CT-A: Report Reviewed and Image Reviewed
CT Head: Report Reviewed and Image Reviewed
MRI Head: Report Reviewed and Image Reviewed
MRA Head: Report Reviewed and Image Reviewed
MRA Neck: Report Reviewed and Image Reviewed
--- NOTE | 2024-02-06 13:02 | VNURNOTE ---
Home Health Liaison met with patient and daughter Jade at 1230 to discuss [facility] nurse/therapy, visits, schedule and homebound status. Patient is agreeable and understands that visits at home will be 2-3 x per week to assess and teach medical
management.
[facility] brochure provided with contact information. Patient is aware that [facility] will contact them for start of care in 1-2 days after discharge from .
[facility] referral completed in [facility].
--- NOTE | 2024-02-06 14:54 | CM ---
Alert awake oriented patient who lives with his daughter Jade they lives in a 1 story home with 3 step to ente. He is independent in driving and in all activities of daily living.He adaptive devices.He was offered VN he requested [facility] .Kasie ARBOLEDA
liaison aware of referral. requested cost of Entresto and farxiga . [facility]ty pharmacist said both were $47.00 a month. Pt notified also.Daughter to drive him home.
No VN hx / No SNF history
Pharmacy [facility]
PCP DR Manuela Sosa
PLAN Home with [facility] if accepted.
== END 2024-02-06 12:37 | disposition home health service (06) | DRG 69 ==
LOC: 3 WEST ACU 14:34
PROVIDERS: ADMITTING PHYSICIAN Internal Medicine; ATTENDING PHYSICIAN Hospitalist; CONSULT PHYSICIAN Internal Medicine Cardiovascular Disease; CONSULT PHYSICIAN Psychiatry & Neurology Psychiatry; CONSULT PHYSICIAN Surgery Vascular Surgery; EMERGENCY PHYSICIAN Emergency Medicine; OTHER PHYSICIAN Student in an Organized Health Care Education/Training Program
DX: G45.9 Transient cerebral ischemic attack, unspecified (principal); I42.9 Cardiomyopathy, unspecified; I50.20 Unspecified systolic (congestive) heart failure; R45.1 Restlessness and agitation; E11.9 Type 2 diabetes mellitus without complications; I11.0 Hypertensive heart disease with heart failure; H54.61 Unqualified visual loss, right eye, normal vision left eye; J44.9 Chronic obstructive pulmonary disease, unspecified; E78.00 Pure hypercholesterolemia, unspecified; E78.49 Other hyperlipidemia; H53.9 Unspecified visual disturbance; F10.11 Alcohol abuse, in remission; F41.9 Anxiety disorder, unspecified; Z59.86 Financial insecurity; Z79.4 Long term (current) use of insulin; Z87.891 Personal history of nicotine dependence; Z91.199 Patient's noncompliance with other medical treatment and regimen due to unspecified reason
CPT/HCPCS: 70450; 70496; 70498; 70544; 70548; 70551; 71046; 80048; 80053; 80061; 82306; 82607; 82746; 82962; 83036; 84443; 84484; 85025; 85027; 85610; 85730; 86803; 92523; 93005; 93306; 96374; 97161; 97166; 99285; A9585; Q9967

== ENCOUNTER 2024-02-19 19:19 | Emergency (ER) | payer MEDICARE, SELFPAY ==
[2024-02-19 19:20] VITALS: BP 122/60
[2024-02-19 19:21] VITALS: BP 122/60
[2024-02-19 19:33] LABS: % Basophils 1.8 % (0-2); % Eosinophils 2.7 % (0-6); % Immature Granulocytes 0.2 % (0-0.5); % Monocytes 7.8 % (1.7-9.3); % Neutrophils 50.5 % (42.2-75.2); Absolute Basophils 0.2 10^3/uL (0-0.2); Absolute Eosinophils 0.3 10^3/uL (0-0.7); Absolute Lymphocytes 3.4 10^3/uL (1.2-3.4); Absolute Monocytes 0.7 10^3/uL (0.1-0.6); Absolute Neutrophils 4.7 10^3/uL (1.4-6.5); Hematocrit 43.6 % (39.0-52.0); Hemoglobin 14.6 g/dL (13.0-18.0); Mean Corp Hgb Conc. 33.5 g/dL (33.0-37.0); Mean Corpuscular Hgb 31.1 pg (27.0-31.0); Mean Corpuscular Volume 92.8 fL (80.0-94.0); Mean Platelet Volume 9.7 fL (7.4-10.4); Nucleated Red Blood Cells % 0 % (-); Platelet Count 270 10^3/uL (130-400); Red Cell Dist. Width 12.3 % (11.5-14.5); White Blood Cell Count 9.3 10^3/uL (4.8-10.8)
[2024-02-19 20:00] VITALS: BP 117/64
[2024-02-19 20:00] LABS: Blood Urea Nitrogen 29 mg/dl (9-20); Calcium 10.1 mg/dl (8.4-10.2); Carbon Dioxide 23 mmol/L (22-30); Chloride 101 mmol/L (98-107); Glucose 263 mg/dl (70-99); Sodium 132 mmol/L (135-145); eGFR > 60.00
--- NOTE | 2024-02-19 20:10 | ED.GENMED ---
History of Present Illness
General
Chief Complaint: Dizziness
Source: patient
Exam Limitations: none
Time Seen by Provider: 02/19/24 19:51
History of Present Illness
History of Present Illness:
This is a 78 year old male that comes in with c/o blurred vision in the right eye. Patient was here on 02/05/24 and admitted with similar complaint. Patient has an MRA, MRI and CTA of head and neck. Patient was discharged. States that tonight he was
sitting at dinner and his vision became blurred. States that this comes on fast. States that it has decreased some but it is still blurred. States that he feels slightly lightheaded. Patient also c/o SOB but has COPD. Denies any fever, chills, chest
pain, abd pain, nausea, vomiting, diarrhea, headache, urinary burning.
Past History
Past History
ED Past Medical History: COPD, HTN, Hypercholesterolemia, NIDDM, Psychiatric (Anxiety) and Other (Perforated Ulcer)
ED Past Surgical History: Appendectomy and Tonsilectomy
Social History
Tobacco: Former smoker
Alcohol: None
Personal:
Living: alone (Lives in [place])
Review of Systems
Review of Systems
All Other Systems: ROS reviewed and negative except as documented in HPI and ROS
Constitutional: Reports no symptoms; Denies fever or chills
EENT: Reports other (BLURRED VISION RIGHT EYE)
Respiratory: Reports trouble breathing; Denies cough
Cardiac: Reports no symptoms; Denies chest pain
ABD/GI: Reports no symptoms; Denies abdominal pain, nausea, vomiting or diarrhea
: Reports no symptoms; Denies dysuria, frequency or urgency
Musculoskeletal: Reports no symptoms
Skin: Reports no symptoms
Neurological: Reports other (Slightly lightheaded); Denies dizzy or headache
Psychiatric: Reports no symptoms
Phy Exam
General Physical Exam
General Presentation: well appearing and no apparent distress
General age: appears stated age
General Skin: warm and dry
General Habitus: elderly
General Mental: alert
General Hydration: appears well hydrated
ENT Exam
ENT Exam: TM's normal, pharynx normal and neck supple
Eye Exam
Eye Exam: PERRL and EOMI
Cardiovascular Exam
Cardiovascular Exam: regular rate/rhythm, no edema and normal peripheral pulses
Pulmonary Exam
Pulmonary Exam: lungs clear, no respiratory distress, no rales, chest non tender, no crackles, no rhonchi, no wheezing and no cough
Gastrointestinal Exam
Gastrointestinal Exam: normal bowel sounds, non tender, soft, no organomegaly, no pulsatile mass and non distended
NIH Stroke Score
Level of Consciousness: 0 - Alert
LOC questions: 0-Answers both correctly
LOC Commands: 0-Performs both correctly
Best Gaze: 0-Normal
Visual Mckee: 0=Normal, no visual loss
Facial palsy: 0=Normal, symmetrical
Motor - Right Arm: 0=No drift 10 seconds
Motor - Left Arm: 0=No drift 10 seconds
Motor - Right Le-No drift 5 seconds
Motor - Left Le-No drift 5 seconds
Limb Ataxia: 0-Absent
Sensation: 0-Normal
Best Language: 0-No aphasia
Dysarthria: 0-Normal
Extinction and Inattention: 0-No abnormality
Total Score:: 0
Musculoskeletal Exam
Musculoskeletal Exam: full ROM and no edema
Skin Exam
Skin Exam: normal color, warm/dry, no rash and no petechia
Psychiatric Exam
Psychiatric Exam: normal mood/affect
Course
Orders/Labs/Results
Orders:
Orders
02/19/24 19:22
Electrocardiogram (*1) Urgent
Reason for Study: Shortness of Breath
EKG- Treatment ONCE
02/19/24 19:26
Basic Metabolic Panel Urgent
Complete Blood Count/With Diff Urgent
02/19/24 21:37
0.9% Sodium Chloride 1000 ml [Nss] 1,000 ml IV BOLUS
Abnormal Lab Results
02/19/24
19:26
MCH 31.1 H pg
(27.0-31.0)
Absolute Monos (auto) 0.7 H 10^3/uL
(0.1-0.6)
Sodium 132 L mmol/L
(135-145)
BUN 29 H mg/dl
(9-20)
Glucose 263 H mg/dl
(70-99)
02/19/24 19:26
02/19/24 19:26
Sodium slightly low. Dehydration. Glucose nonfasting.
Vital Signs
Initial and Last Documented VS:
Initial Vital Signs
BP
122/60
02/19/24 19:20
Last Documented Vital Signs
Temp Pulse Resp BP Pulse Ox
97.8 F 81 16 110/91 99
02/19/24 19:21 02/19/24 22:15 02/19/24 22:15 02/19/24 22:00 02/19/24 22:15
MDM/Problems Addressed
Differential Diagnosis Includes:
Visual changes,
MDM/Problems Addressed:
This is a 78 year old male that comes in with c/o blurred vision in the right eye. Patient has been here before and had a CTA of head and neck, MRA and MRI.
Will check labs and and Discussed with Dr. Sanchez. Feel that the patient can go home and follow up with the automated logistics specialist for further evaluation.
Back into see patient. Explained that his blood work shows Dehydration. Daughter is in with patient at this time and states that he did see an eye doctor and he dose need his glasses changed. States that they were told that they do not feel that
these episodes are due to his need for glasses changed. Explained that he has had a full work up when here. Will have patient follow up with the Neurologist. Patient to increase his water intake and return with any other concerns.
Chronic conditions affecting care: DM and HTN
Acute Exacerbation and/or Progression of Chronic Illness: DM and HTN
*Pulse Oximetry
Patient hypoxic: no
*EKG
Interpreted by ED Provider?: Yes
Heart Rate: 82
Rate: normal
Rhythm: sinus
[place]: normal axis
Interval: normal interval
QRS Pattern: normal QRS
Ischemia: no ischemia
*Prepress Operator Interpretation
Rate: Prepress Operator- N/A
Heart Rate: 81
Rhythm: sinus
*Critical Care Note
Total Time (30-74mins, 75-104mins- exclusive of procedures): Not Applicable
ED Attending Note
-
Portions of this chart may have been created with voice recognition software.� Occasional wrong word or��sound alike� substitutions may have occurred due to the inherent limitations of voice recognition software.
Discharge Plan
Departure
Patient Disposition: Home (Routine Discharge)
Date of Disposition: 02/19/24
Time of Disposition: 22:30
Patient with high blood pressure during this ER visit?: No
Condition: Good
Covid-19: Not Applicable
Discharge Problem:
Acute dehydration, Vision changes
Instructions: Dehydration, Adult ED
Prescriptions:
No Action
mwkolvtwfsqy-pypkyezh-zwzmyl Tablet
1 tab PO DAILY
insulin glargine [Lantus Solostar U-100 Insulin] 100 unit/mL (3 mL) Insulin Pen
20 unit SC DAILY
Januvia
1 tab PO HS
atorvastatin 80 mg Tablet
80 mg PO QPM 30 Days Qty: 30 0RF
clopidogrel 75 mg Tablet
75 mg PO DAILY 29 Days Qty: 29 0RF
aspirin [Children's Aspirin] 81 mg Tablet,Chewable
81 mg PO DAILY 30 Days Qty: 30 0RF
metoprolol succinate 25 mg Tablet Extended Release 24 Hr
25 mg PO DAILY 30 Days Qty: 30 0RF
dapagliflozin propanediol 10 mg Tablet
10 mg PO DAILY 30 Days Qty: 30 0RF
Entresto 24-26 mg Tablet
1 tab PO BID 30 Days Qty: 60 0RF
Referrals:
Mich Sparks MD [Active] - Follow up in 2-3 days
UNKNOWN - PT DOES,NOT KNOW [Unknown Provider] -
Activity Restrictions/Additional Instructions:
As discussed, your blood work shows dehydration. Please increase your water intake to 8-8oz glasses daily. Please follow up with the Neurologist for further evaluation. This may be a form of a complicated Migraine. IF YOU HAVE ANY OTHER CONCERNS OR
THE VISION WORSENS PLEASE RETURN TO THE EMERGENCY ROOM.
Interventions
Interventions:
*Risk Screen - Suicide Last Done: 02/19/24 19:21
*General Assessment Last Done: 02/19/24 19:21
*Neglect/Abuse Screening Last Done: 02/19/24 19:21
*ED COVID-19 Vaccine History Last Done: 02/19/24 19:21
ED- Neurological Assessment Last Done: 02/19/24 19:43
ED- Cardiac Assessment Last Done: 02/19/24 19:43
ED Swallowing Screen Last Done: 02/19/24 21:54
Discharge Date and Time
Print Language: MONEGASQUE
[2024-02-19 21:00] VITALS: BP 130/66
[2024-02-19] MEDS: NSS 1000 IV (21:44)
[2024-02-19 22:00] VITALS: BP 110/91
== END 2024-02-19 22:44 | disposition home or self-care (01) ==
LOC: EMR 19:19
PROVIDERS: EMERGENCY PHYSICIAN Emergency Medicine
DX: E86.0 Dehydration (principal); H53.8 Other visual disturbances; J44.9 Chronic obstructive pulmonary disease, unspecified; I10 Essential (primary) hypertension; E78.00 Pure hypercholesterolemia, unspecified; E11.9 Type 2 diabetes mellitus without complications; F41.9 Anxiety disorder, unspecified
CPT/HCPCS: 99283; 96360; 80048; 85025; 93005

== ENCOUNTER → 2024-03-05 10:03 | Outpatient (REF) | payer MEDICARE, SELFPAY | LOC: RAD 10:03 | PROVIDERS: ATTENDING PHYSICIAN Surgery Vascular Surgery | DX: I73.9 Peripheral vascular disease, unspecified (principal); I71.40 Abdominal aortic aneurysm, without rupture, unspecified | CPT/HCPCS: 76770; 93922; 93925 ==